=== PATIENT | male | born 1990 | race Caucasian/White ===

== ENCOUNTER 2017-02-18 11:32 | Emergency (ER) | payer OTHER | END 2017-02-18 12:03 | disposition home or self-care (01) | LOC: CFTX 11:32 | DX: M79.602 Pain in left arm (principal); Z76.0 Encounter for issue of repeat prescription; Z98.890 Other specified postprocedural states | CPT/HCPCS: 99282 ==

== ENCOUNTER → 2017-03-07 08:25 | Emergency (ER) | payer OTHER | END | disposition left against medical advice (07) | LOC: CED 08:25 | DX: Z53.21 Procedure and treatment not carried out due to patient leaving prior to being seen by health care provider (principal) ==

== ENCOUNTER 2017-04-03 10:28 | Emergency (ER) | payer OTHER | END 2017-04-03 11:19 | disposition home or self-care (01) | LOC: CED 10:28 | DX: M25.512 Pain in left shoulder (principal); M25.522 Pain in left elbow; F17.200 Nicotine dependence, unspecified, uncomplicated | CPT/HCPCS: 96372; 99283; J1885 ==